=== PATIENT | male | born 1955 | race Caucasian/White ===

== ENCOUNTER 2017-02-04 09:31 | Day surgery (SDC) | payer OTHER ==
[~2017-02-04 09:31] MED LIST: LIDOCAINE HCL 1% MPF SOL ONE; PROPOFOL 500 MG/50 ML EMU IV ONE
[2017-02-04 15:24] VITALS: TEMP 96.2
[2017-02-04 15:26] VITALS: BP 180/85; PULSE 59; RESP 18; O2SAT 96
== END 2017-02-04 13:33 | disposition home or self-care (01) | DRG 951 ==
LOC: SURG 09:31
PROVIDERS: ATTEND Surgery
DX: Z12.11 Encounter for screening for malignant neoplasm of colon (principal); D12.3 Benign neoplasm of transverse colon
CPT/HCPCS: 99001; J2001; J2704